=== PATIENT | female | born 1935 | race Caucasian/White ===

== ENCOUNTER 2016-10-21 11:07 | Inpatient (IN) | payer MEDICARE, BC ==
[2016-10-21] VITALS (13 sets, daily range): BP systolic 119–176; BP diastolic 68–91
[~2016-10-21] VITALS: Ht 170.2 cm; Wt 67.2 kg
[~2016-10-21 11:07] MED LIST: AMLODIPINE5 MG PO; BABY ASPIRIN81 MG OR; CALCIUM500 MG/D OR; LIPITOR20 MG OR; SIMVASTATIN20 MG PO; SINGULAIR10 MG PO; TRAMADOL HCL50 MG OR; TYLENOL325 MG OR
--- NOTE | 2016-10-21 11:15 | NUR ---
PT IMMEDIATELY TO ROOM 11. DR SOTO TO BEDSIDE, RESPIRATORY THERPAY CALLED FOR STAT ABG AND NEBULIZER TX. AUDIBLE WHEEZING NOTED. SPO2 85% ON ROOM AIR.
[2016-10-21] MEDS ORDERED: TYLENOL 500MG TAB PO (11:25)
[2016-10-21] MEDS ORDERED: PULMICORT0.25 MG/2 IN (11:26)
[2016-10-21] MEDS ORDERED: PROAIR HFA IN (11:26)
[2016-10-21] MEDS ORDERED: ADLT ASA LOW81 MG PO (11:28)
[2016-10-21] MEDS ORDERED: BAYER BACK PO (11:29)
[2016-10-21] MEDS ORDERED: [UNRECOGNIZED DRUG - OTHER] PO (11:29)
[2016-10-21] MEDS ORDERED: ARICEPT5 MG PO (11:30)
[2016-10-21] MEDS ORDERED: EQL VITAMIN B500 MCG PO (11:30)
[2016-10-21] MEDS ORDERED: MELATONIN5 M3 PO (11:31)
[2016-10-21] MEDS ORDERED: DUONEB IN (11:31)
[2016-10-21] MEDS ORDERED: MULTI VIT PO (11:32)
[2016-10-21 11:55] LABS: HEMATOCRIT 44.3 % (37.0-47.0); HEMOGLOBIN 14.7 g/dl (12.0-16.0); IMMATURE GRANULOCYTES 0.2 % (0.0-1.0); MEAN CORPUSCULAR HGB 29.5 pG CALC (26.0-32.0); MEAN CORPUSCULAR HGB CONC 33.2 g/L CALC (32.0-36.0); NEUT# 7.78 thou/uL (2.00-7.15); RED BLOOD COUNT 4.98 mill/uL (4.20-5.60); RED CELL DISTRI WIDTH 13.1 % (11.5-15.5)
--- NOTE | 2016-10-21 11:57 | NUR ---
PT C/O INCREASED SOB STATING "I CAN'T BREATHE AT ALL". LUNG SOUNDS INCREASED WHEEZING. SAO2=90% ON 3L NC. RR 34 WITH ACCESSORY MUSCLE USE. NOTIFIED.
[2016-10-21 12:01] LABS: ALBUMIN 4.7 g/dL (3.2-5.0); ALKALINE PHOSPHATASE 142 u/l (38-126); ANION GAP 16 (6-22 (CALC)); BUN 7 mg/dL (8-23); BUN/CREATININE RATIO 10 (12-20 (CALC)); CALCIUM 9.8 mg/dL (8.4-10.2); CARBON DIOXIDE 25 mmol/l (22-30); CHLORIDE 102 mmol/l (95-108); CREATININE 0.7 mg/dL (0.5-1.0); GFR > 60 ML/MIN (>=60 (CALC)); GFR FOR AFR.AMER. > 60 ML/MIN (>=60 (CALC)); GLUCOSE 100 mg/dL (82-115); POTASSIUM 4.4 mmol/l (3.5-5.1); SGOT/AST 25 u/l (9-36); SGPT/ALT 16 u/l (11-66); SODIUM 139 mmol/l (137-146); TOTAL PROTEIN 8.3 g/dL (6.3-8.2)
--- NOTE | 2016-10-21 12:07 | NUR ---
SAO2 UP TO 99% ON BIPAP. SKIN WARM AND DRY. PT ALERT. PT TOLERATING BIPAP WELL. AT BEDSIDE. VSS. CALL LIGHT WITHIN REACH.
[2016-10-21 12:13] LABS: MYOGLOBIN 77 ng/mL (0 - 62)
[2016-10-21 12:17] LABS: PROTHROMBIN TIME 11.2 SECONDS (9.0-12.5)
--- NOTE | 2016-10-21 13:13 | NUR ---
PT RESTING COMFORTABLY ON STRETCHER. PT DENIES SOB. SAO2=99% ON BIPAP. RESP EVEN AND UNLABORED. NO ACCESSORY MUSCLE USE. SKIN WARM AND DRY. PT A&O X3. AT BEDSIDE. PT IN STABLE CONDITION. CALL LIGHT WITHIN REACH.
--- NOTE | 2016-10-21 14:10 | NUR ---
SORAIDA D/C'Justice. PT TALKATIVE.
--- NOTE | 2016-10-21 14:14 | NUR ---
SAO2 DOWN TO 92% ON 4L NC. LUNG SOUNDS REMAIN DIMINISHED WITH WHEEZING. PT BEGINS TO C/O "HARD TO BREATHE". PT USING ACCESSORY MUSCLES TO BREATHE. AT BEDSIDE. NEB TX INITIATED BY RT.
--- NOTE | 2016-10-21 14:27 | NUR ---
SBAR PRINTED TO FLOOR
--- NOTE | 2016-10-21 14:30 | NUR ---
PT CONTINUES TO C/O "HARD TO BREATHE". SAO2=92% ON 4L NC. MD AWARE. LUNG SOUNDS UNCHANGED. AT BEDSIDE. CONTINUING TO MONITOR
--- NOTE | 2016-10-21 14:50 | NUR ---
PT PLACED ON BIPAP AGAIN. SAO2 UP TO 98% ON BIPAP. PT CALM. PT AWAITING ADMISSION. PT STATES CAN "BREATHE MUCH BETTER" CALL LIGHT WITHIN REACH.
--- NOTE | 2016-10-21 15:23 | NUR ---
REPORT GIVEN TO LARS PAPPAS
--- NOTE | 2016-10-21 15:30 | NUR ---
Admission Note Report Given to: LARS RN Transported by: Wheelchair X Stretcher Transported with: X Nurse Transporter X Patent IV X O2 X Broadband Installer PT UP TO ICU 8 WITHOUT INCIDENT. PT IN STABLE CONDITION. BOTH IV SITES HEALTHY. ALL BELONGINGS WITH PT INCLUDING DENTURES. WITH PT.
--- NOTE | 2016-10-21 15:45 | NUR ---
PT ARRIVED TO THE UNIT VIA STRETCHER AND ONE PERSON ASSISTANCE FROM THE ER AND RT WITH BIPAP MACHINE. MACHINE SETTINGS PER FLOW SHEET WITH RT. PT IS UNABLE TO TRANSFER INDEPENDANTLY R/T RESPIRATORY STATUS. PT WEIGHED VIA BED SCALE. ASSESSMENT OBTAINED AND HISTORY PERFORMED. PT ORIENTATED TO RIGHTS, RESPONSIBILITIES, ROOM AND CALL LIGHT. PT ASKING ABOUT FOOD AND WATER. INSTRUCTED PT OF NPO STATUS. PT IS NOT EXCITED ABOUT THIS NEW INFORMATION. FURTHER EDUCATION EXPLAINED, THAT AIRWAY IS TOP PRIORITY, AND PERHAPS ONCE LUNGS HAVE TIME TO REST AND RECOVER, SHE CAN USE NC, AND HAVE DIET. WILL CONTINUE TO EDUCATE.
--- NOTE | 2016-10-21 16:05 | NUR ---
MD IN TO SEE PT AT THIS TIME, WILL CONTINUE TO MONITOR.
--- NOTE | 2016-10-21 18:00 | NUR ---
INSTRUCTED PT OF PROPER USE OF BED LUIS, PT STATES "THIS JUST DOESNT FEEL NATURAL." RE-EDUCATED OF BEDREST STATUS. WILL CONTINUE TO MONITOR.
--- NOTE | 2016-10-21 19:20 | NUR ---
awake. no acute resp distress. coarse breath sounds bilat. o2 cont per nc. hob high fowlers position. VERY talkative. cardiac care nurse shows sinus rhythm. #20 lac & rac saline lock. voids per bedside commode. fall precautions cont.
--- NOTE | 2016-10-21 20:30 | NUR ---
pt requested sleeper. dr worley notified. orders rec'd.
--- NOTE | 2016-10-21 20:30 | NUR ---
requested bipap to be resumed. c/o sob although she talks ALOT. rt notified.
--- NOTE | 2016-10-21 21:25 | NUR ---
sonata 5mg po given per request for sleep.
--- NOTE | 2016-10-21 23:00 | NUR ---
awake. naps for short intervals then begins to talk ALOT. up to bedsode commode approx every hour. bipap conts.
[2016-10-22] VITALS (10 sets, daily range): BP systolic 126–171; BP diastolic 71–90
--- NOTE | 2016-10-22 00:05 | NUR ---
has sat on side of bed x2 & removed bipap-replaced x2. has numerous complaints-to tight on face, makes my head hurt, don't want to wear, thirsty. encouraged pt to cont to wear. requested rt to adjust if able.
--- NOTE | 2016-10-22 01:20 | NUR ---
awake. admits "i can't wear this anymore." bipap removed-nasal cannula applied.
--- NOTE | 2016-10-22 02:00 | NUR ---
remains awake. sitting on side of bed. admits "i can't breathe." o2 off-replaced. sao2 93%. up to bsc for bm then to bed. requested neb tx. rt notified.
--- NOTE | 2016-10-22 03:00 | NUR ---
lying quietly in bed. no resp distress. o2 cont per nc.
--- NOTE | 2016-10-22 03:20 | NUR ---
awake. sitting on side of bed. no acute resp distress. o2 cont per nc.
--- NOTE | 2016-10-22 03:50 | NUR ---
laid self down. no distress. monitor shows sinus rhythm.
--- NOTE | 2016-10-22 04:30 | NUR ---
awakened by lab. blood drawn.
[2016-10-22 04:40] LABS: HEMATOCRIT 42.6 % (37.0-47.0); HEMOGLOBIN 13.9 g/dl (12.0-16.0); IMMATURE GRANULOCYTES 0.1 % (0.0-1.0); MEAN CELL VOLUME 88.8 fL CALC (80.0-100.0); MEAN CORPUSCULAR HGB CONC 32.6 g/L CALC (32.0-36.0); NEUT# 6.14 thou/uL (2.00-7.15); RED BLOOD COUNT 4.8 mill/uL (4.20-5.60); RED CELL DISTRI WIDTH 12.9 % (11.5-15.5)
[2016-10-22 05:04] LABS: ANION GAP 21 (6-22 (CALC)); BUN 12 mg/dL (8-23); BUN/CREATININE RATIO 18 (12-20 (CALC)); CALCIUM 10.2 mg/dL (8.4-10.2); CARBON DIOXIDE 19 mmol/l (22-30); CHLORIDE 101 mmol/l (95-108); CREATININE 0.7 mg/dL (0.5-1.0); GFR > 60 ML/MIN (>=60 (CALC)); GFR FOR AFR.AMER. > 60 ML/MIN (>=60 (CALC)); GLUCOSE 123 mg/dL (82-115); POTASSIUM 5.1 mmol/l (3.5-5.1); SODIUM 136 mmol/l (137-146)
--- NOTE | 2016-10-22 05:55 | NUR ---
sitting on side of bed. c/o "i can't breathe." sao2 96%. no resp distress. o2 cont per nc.
--- NOTE | 2016-10-22 07:25 | NUR ---
PT LAYING IN BED WATCHING TV, VERBALIZES NO COMPLAINTS, PT ALERT AND NEEDS REORIENTING FROM TIME TO TIME, HR 88, RESP. 20, BP 140/80, O2 95% ON 4L VIA NC, LUNG SOUNDS COARSE IN ALL KANG, AM ASSESSMENT COMPLETE, SEE INTERVENTIONS, SAFETY MEASURES REINFORCED, CALL MARQUIS WITHIN REACH
--- NOTE | 2016-10-22 09:00 | NUR ---
DR STOLL AT BEDSIDE DISCUSSING PLAN OF CARE
--- NOTE | 2016-10-22 09:31 | NUR ---
VISITOR AT BEDSIDE
--- NOTE | 2016-10-22 10:20 | NUR ---
PT SITTING UP ON THE EDGE OF THE BED NO S/S OF DISTRESS, REMINDED TO CALL FOR ASSISTANCE, CALL MARQUIS WITHIN REACH
--- NOTE | 2016-10-22 11:30 | NUR ---
SETUP ASSISTANCE PROVIDED WITH LUNCH TRAY
--- NOTE | 2016-10-22 12:10 | NUR ---
PT SITTING ON THE EDGE OF THE BED TALKING TO WHO IS AT BEDSIDE, VERBALIZES NO COMPLAINTS, TOLERATED LUNCH WELL, REMINDED TO CALL FOR ASSISTANCE, CALL MARQUIS WITHIN REACH
--- NOTE | 2016-10-22 14:41 | NUR ---
PT SITTING UP IN BED WATCHING TV WITH AT BEDSIDE, PT FORGETFUL NEEDS FREQUENT REDIRECTION, CALL MARQUIS WITHIN REACH
--- NOTE | 2016-10-22 16:35 | NUR ---
PT SITTING ON THE EDGE OF THE BED WANTING TO GO HOME, CALL MARQUIS WITHIN REACH
--- NOTE | 2016-10-22 17:15 | NUR ---
PT ANXIOUS, PULLING EQUIPMENT OFF, PT SHORT OF BREATH DUE TO REMOVING OXYGEN, MD NOTIFIED NEW ORDERS RECEIVED
--- NOTE | 2016-10-22 17:25 | NUR ---
SETUP ASSISTANCE PROVIDED WITH PM MEAL TRAY
--- NOTE | 2016-10-22 19:00 | NUR ---
awake. confused. thinks she is in her home. denies pain. coarse breath sounds & wheezes bilat. o2 cont per nc. hospital monitor shows sinus sinus tach. #20 rac saline lock. po fluids taken well. voids per bedside commode. requires freq observation from staff. fall precautions cont.
--- NOTE | 2016-10-22 19:30 | NUR ---
standing @ bedside naked. "looking for my cat." attempted to reoriented without success. regowned. assisted into bed.
--- NOTE | 2016-10-22 20:00 | NUR ---
standing @ side of bed naked. o2, dramatic director & bp cuff off-replaced. regowned & assisted into bed. unable to reorient.
--- NOTE | 2016-10-22 20:30 | NUR ---
sitting on side of bed. o2 off-replaced. sonata 5mg po given for sleep.
--- NOTE | 2016-10-22 21:55 | NUR ---
oob freq. removes o2 freq. requires much attention from staff. remains confused. xanax 0.25mg po given.
--- NOTE | 2016-10-22 23:00 | NUR ---
eyes closed. no resp distress. monitor shows sinus tach.
[2016-10-23] VITALS (12 sets, daily range): BP systolic 100–160; BP diastolic 62–95
--- NOTE | 2016-10-23 02:00 | NUR ---
resting quietly. resps unlabored. o2 cont per nc. monitor shows sinus tach.
--- NOTE | 2016-10-23 04:00 | NUR ---
cont to sleep. no distress.
[2016-10-23 04:14] LABS: HEMATOCRIT 42.1 % (37.0-47.0); HEMOGLOBIN 13.9 g/dl (12.0-16.0); IMMATURE GRANULOCYTES 0.5 % (0.0-1.0); MEAN CELL VOLUME 89.4 fL CALC (80.0-100.0); MEAN CORPUSCULAR HGB 29.5 pG CALC (26.0-32.0); NEUT# 18.15 thou/uL (2.00-7.15); RED BLOOD COUNT 4.71 mill/uL (4.20-5.60); RED CELL DISTRI WIDTH 13.2 % (11.5-15.5)
--- NOTE | 2016-10-23 04:30 | NUR ---
lab here. blood drawn.
[2016-10-23 04:34] LABS: ANION GAP 19 (6-22 (CALC)); BUN 22 mg/dL (8-23); BUN/CREATININE RATIO 26 (12-20 (CALC)); CALCIUM 10.3 mg/dL (8.4-10.2); CARBON DIOXIDE 23 mmol/l (22-30); CHLORIDE 97 mmol/l (95-108); CREATININE 0.8 mg/dL (0.5-1.0); GFR > 60 ML/MIN (>=60 (CALC)); GFR FOR AFR.AMER. > 60 ML/MIN (>=60 (CALC)); GLUCOSE 123 mg/dL (82-115); SODIUM 133 mmol/l (137-146)
[2016-10-23 04:52] LABS: POTASSIUM 5.6 mmol/l (3.5-5.1)
--- NOTE | 2016-10-23 06:00 | NUR ---
sitting on side of bed. no distress. monitor shows sinus tach.
--- NOTE | 2016-10-23 07:10 | NUR ---
PT SITTING ON THE SIDE OF THE BED, A&O X 3, PT HAS MOMENTS OF CONFUSION, IS EASILY REORIENTED, PERRL, HR 120, RESP. 22, BP 156/78, O2 95% ON 4L VIA NC, PT HAS A NONE PRODUCTIVE COUGH, LUNG SOUNDS COARSE WITH WHEEZES, 20G RAC IV SALINE LOCKED, AM ASSESSMENT COMPLETE, SEE INTERVENTIONS, SAFETY MEASURES REINFORCED, CALL MARQUIS WITHIN REACH
--- NOTE | 2016-10-23 07:35 | NUR ---
SETUP ASSISTANCE PROVIDED WITH AM MEAL TRASoila
--- NOTE | 2016-10-23 08:10 | NUR ---
PT SITTING ON THE EDGE OF THE BED, TOLERATING WELL, CALL MARQUIS WITHIN REACH
--- NOTE | 2016-10-23 10:15 | NUR ---
DR STOLL AT BEDSIDE DISCUSSING PLAN OF CARE
--- NOTE | 2016-10-23 11:30 | NUR ---
SETUP ASSISTANCE PROVIDED WITH LUNCH TRAY
--- NOTE | 2016-10-23 11:35 | NUR ---
PT AGITATED PULLING AT MONITORING EQUIPMENT AND DISCONNECTING EQUIPMENT AND REMOVING O2, MD NOTIFIED ORDERS GIVEN
--- NOTE | 2016-10-23 12:05 | NUR ---
PT TOLERATED LUNCH TRAY WELL, SITTING ON THE SIDE OF THE BED, NO S/S OF DISTRESS
--- NOTE | 2016-10-23 13:10 | NUR ---
FAMILY AT BEDSIDE
--- NOTE | 2016-10-23 14:35 | NUR ---
PT SITTING ON THE SIDE OF THE VERBALIZES NO COMPLAINTS, REMINDED TO CALL FOR ASSISTANCE, CALL MARQUIS WITHIN REACH
--- NOTE | 2016-10-23 15:30 | NUR ---
PT ARRIVED TO FLOOR VIA WC THIS TIME ACCOMPANIED BY PATRICIA ESTRADA; PT ORIENTED TO ROOM AND CALL LIGHT SYSTEM; ASSESSMENT COMPLETED IN AGREEMENT WITH ASSESSMENT DOCUMENTED; VSS; BED ALARM IN PLACE FOR PT SAFETY; PT C/O "TICKLE" IN HER THROAT; DR STOLL NOTIFIED AND NEW ORDERS RECIEVED; PT INSTRUCTED TO CALL FOR ANY ASSISTANCE NEEDED; CALL LIGHT WITHIN REACH; WILL CONTINUE TO MONITOR
--- NOTE | 2016-10-23 19:28 | NUR ---
BEDSIDE REPORT RECEIVED FROM ELYSE FENG. PT RESTING IN BED WITH EYES CLOSED. NO SIGNS OF PAIN/DISCOMFORT NOTED. RESPIRATIONS EVEN AND UNLABORED WITH OXYGEN IN PLACE. BED ALARM AND OTHER SAFETY MEASURES IN PLACE. CALL LIGHT WITHIHN REACH.
--- NOTE | 2016-10-23 22:34 | NUR ---
PT'S BED ALARM SOUNDED AND PATIENT OBSERVED TO HAVE TAKEN OF HER DIE KEEPER AND SITTING ON THE EDGE OF THE BED STATING THAT SHE WANTS TO GO HOME. PT IS ORIENTED TO NAME ONLY AT THIS TIME. DEMANDS THAT HER COME PICK HER UP. ARRIVED TO UNIT TO DISCUSS PLAN OF CARE. NATE AGREES THAT PT IS UNSAFE AT THIS TIME TO BE TAKEN HOME. PT CURRENTLY IN ROOM AMBULATING AND SITTING IN CHAIR WITH BAGS PACKED UP. ALL MEDICATIONS GIVEN INCLUDING PRN XANAX AND SONATA. PT CALLED AGAIN ASKING HIM WHY HE ISNT HERE YET. ATTEMPTED TO REDIRECT PT AND ORIENT HER WITH NO EFFECT. WILL CONTINUE TO MONITOR CLOSELY. ALL SAFETY MEASURES IN PLACE. CALL LIGHT WITHIN REACH.
--- NOTE | 2016-10-24 00:46 | NUR ---
PT RESTING IN BED WITH EYES CLOSED. ALLOWED STAFF TO REAPPLY HAULAGE ENGINE OPERATOR AND NIGHT GOWN. AGREED THAT SHE WOULD STAY THE NIGHT HERE. CONTINUES TO HAVE QUESTIONS REGARDING . C/O HEADACHE AND ANALGESIC GIVEN WITH GOOD EFFECT. ALL SAFETY MEASURES IN PLACE. CONTINUEING TO MONITOR FREQUENTLY. CALL LIGHT SYSTEM REVIEWED AND IN REACH.
--- NOTE | 2016-10-24 04:28 | NUR ---
PT ASLEEP AT THIS TIME. NO SIGNS OF PAIN OR DISCOMFORT. RESPIRATIONS EVEN AND UNLABORED. SAFETY MEASURES IN PLACE. CALL LIGHT WITHIN REACH.
[2016-10-24 04:53] VITALS: BP 149/87
[2016-10-24 05:11] LABS: HEMATOCRIT 41.2 % (37.0-47.0); IMMATURE GRANULOCYTES 0.5 % (0.0-1.0); MEAN CELL VOLUME 87.5 fL CALC (80.0-100.0); MEAN CORPUSCULAR HGB 29.7 pG CALC (26.0-32.0); NEUT# 17.91 thou/uL (2.00-7.15); RED BLOOD COUNT 4.71 mill/uL (4.20-5.60); RED CELL DISTRI WIDTH 13.2 % (11.5-15.5)
[2016-10-24 05:17] LABS: ANION GAP 14 (6-22 (CALC)); BUN 20 mg/dL (8-23); BUN/CREATININE RATIO 30 (12-20 (CALC)); CALCIUM 10.1 mg/dL (8.4-10.2); CARBON DIOXIDE 27 mmol/l (22-30); CHLORIDE 100 mmol/l (95-108); CREATININE 0.7 mg/dL (0.5-1.0); GFR > 60 ML/MIN (>=60 (CALC)); GFR FOR AFR.AMER. > 60 ML/MIN (>=60 (CALC)); GLUCOSE 150 mg/dL (82-115); POTASSIUM 4.3 mmol/l (3.5-5.1); SODIUM 137 mmol/l (137-146)
--- NOTE | 2016-10-24 07:00 | NUR ---
SHIFT CHANGE REPORT, PT SLEEPING SOUNDLY AT THIS TIME, HS NURSE REPORTED PT HAD RESTLESS NIGHT. BREATHING EVEN AND NON-LABORED, NO VISIBLE SIGN DISTRESS, CALL MARQUIS IN REACH.
[2016-10-24 09:50] VITALS: BP 128/74
--- NOTE | 2016-10-24 10:14 | NUR ---
JUST AWAKENED, ORIENTED, STATES SHE IS A LATE SLEEPER AND DOES NOT EAT BREAKFAST AND ISNT HUNGRY AT THIS TIME BUT WILL HAVE LUNCH, STATES SHE WANTS TO REST NOW SHE IS TIRED AND NOT A MORNING PERSON. REORIENTED TO TIME AND PLACE, BODY ALARM IN PLACE, CALL MARQUIS IN REACH.
[2016-10-24 11:48] VITALS: BP 130/80
[2016-10-24 15:58] VITALS: BP 132/80
--- NOTE | 2016-10-24 16:00 | NUR ---
SITTING UP IN BED, FAMILY MEMBERS IN ROOM, CALL MARQUIS IN REACH.
--- NOTE | 2016-10-24 20:13 | NUR ---
BEDSIDE REPORT RECEIVED FROM ELYSE ABDI. PT SITTING UP IN BED WATCHING TV AT THIS TIME. ALERT AND ORIENTED TO PERSON AND PLACE CURRENTLY. DENIES PAIN. RESPIRATIONS EVEN AND UNLABORED WITH OXYGEN IN PLACE. PLAN OF CARE DISCUSSED. PT NEEDS REINFORCEMENT. ENCOURAGED TO VERBALIZE CONCERNS. SAFETY MEASURES IN PLACE INCLUDING BED ALARM. CALL LIGHT SYSTEM REVIEWED AND IN REACH.
[2016-10-24 21:34] VITALS: BP 135/81
--- NOTE | 2016-10-25 | NUR ---
PT RESTING IN BED WITH EYES OPEN. STATES THAT SHE IS HAVING A HARD TIME SLEEPING. SLEEPING MEDICATION GIVEN WITH SOMEWHAT EFFECT. COUGH MEDICATION GIVEN FOR COUGH WITH GOOD EFFECT. NO SIGNS OF PAIN OR DISCOMFORT NOTED. RESPIRATIONS EVEN AND UNLABORED. SAFETY MEASURES IN PLACE. CALL LIGHT WITHIN REACH.
[2016-10-25 01:30] VITALS: BP 128/75
--- NOTE | 2016-10-25 04:21 | NUR ---
PT UP IN SEMI FOWLERS POSITION AT THIS TIME RECEIVING A BREATHING TREATMENT BY RT. DENIES PAIN AT THIS TIME. RESPIRATIONS ARE EVEN AND UNLABORED. IV SITE APPEARS HEALTHY AND IS PATENT WHEN FLUSHED. PT HAS NO REQUESTS AT THIS TIME. SAFETY PRECAUTIONS REMAIN IN PLACE INCLUDING BED ALARM. CALL LIGHT WITHIN REACH.
[2016-10-25 04:30] VITALS: BP 145/79
[2016-10-25 04:59] LABS: HEMATOCRIT 38.6 % (37.0-47.0); HEMOGLOBIN 13.1 g/dl (12.0-16.0); IMMATURE GRANULOCYTES 0.3 % (0.0-1.0); MEAN CELL VOLUME 86.2 fL CALC (80.0-100.0); MEAN CORPUSCULAR HGB 29.2 pG CALC (26.0-32.0); MEAN CORPUSCULAR HGB CONC 33.9 g/L CALC (32.0-36.0); NEUT# 12.46 thou/uL (2.00-7.15); RED BLOOD COUNT 4.48 mill/uL (4.20-5.60); RED CELL DISTRI WIDTH 13.1 % (11.5-15.5)
[2016-10-25 05:24] LABS: ANION GAP 13 (6-22 (CALC)); BUN 15 mg/dL (8-23); BUN/CREATININE RATIO 25 (12-20 (CALC)); CALCIUM 9.5 mg/dL (8.4-10.2); CARBON DIOXIDE 28 mmol/l (22-30); CHLORIDE 101 mmol/l (95-108); CREATININE 0.6 mg/dL (0.5-1.0); GFR > 60 ML/MIN (>=60 (CALC)); GFR FOR AFR.AMER. > 60 ML/MIN (>=60 (CALC)); GLUCOSE 140 mg/dL (82-115); SODIUM 138 mmol/l (137-146)
--- NOTE | 2016-10-25 07:10 | NUR ---
BEDSIDE REPORT RECIEVED FROM PATRICIA WHALEN; PT RESTING IN BED; NO S/S OF DISTRESS NOTED; PT CONFUSED TO TIME AND PLACE; STATES "I'M READY TO GET OUT OF HERE AND GO TO MY ROOM THIS ISN'T MY ROOM. I JUST GOT HERE LAST NIGHT, I ONLY CAME FOR SOME TESTS AND NOW I'M READY TO GO HOME"; ATTEMPTED TO REORIENT PT UNSUCCESSFULLY; BED ALARM IN PLACE FOR PT SAFETY; TELE IN PLACE; CALL LIGHT WITHIN REACH; WILL CONTINUE TO MONITOR
[2016-10-25 08:56] VITALS: BP 141/64
[2016-10-25] MEDS ORDERED: STERAPRED DS10 MG PO (10:20)
[2016-10-25] MEDS ORDERED: ZITHROMAX250 MG PO (10:21)
[2016-10-25 10:39] VITALS: BP 136/83
--- NOTE | 2016-10-25 12:10 | NUR ---
PT SITTING UP CHAIR AT BEDSIDE; NO S/S OF DISTRESS NOTED; SPOUSE AT BEDSIDE; PT VERY ANXIOUS TO GET HOME AT THIS TIME; PT INFORMED DISCHARGE WAS PENDING O2 SET UP; PT AND SPOUSE VERBALIZE UNDERSTANDING; CALL LIGHT WITHIN REACH; WILL CONTINUE TO MONITOR
--- NOTE | 2016-10-25 13:26 | NUR ---
PT BECOMING VERY ANXIOUS ABOUT DISCHARGE; SPOUSE AT BEDSIDE; PT MEDICATED WITH XANAX AND UPDATED ON DISCHARGE STATUS; CALL LIGHT WITHIN REACH; WILL CONTINUE TO MONITOR
--- NOTE | 2016-10-25 16:00 | NUR ---
PT VERY ANXIOUS FOR DISCHARGE AND REFUSING TO WAIT FOR O2 DELIVERY; CM AND NURSING STAFF AT BEDSIDE TO EXPLAIN IMPORTANCE OF O2;PT RESTING SATURATION 89% ON RA; SPOUSE AT BEDSIDE; RYANNE, NURSING SUPERVISION ALSO AT BEDSIDE TO DISCUSS POC; SPOUSE WOULD LIKE TO TAKE PT HOME TO MONITOR HER AND UNDERSTANDS PT WOULD BE LEAVING AMA; RAUSCH NOTIFIED; AMA PAPERS SIGNED; PRESCRIPTIONS GIVEN TO SPOUSE; PT WAS ASSISTED TO CAR VIA WC; PT IN STABLE CONDITION AT THIS TIME
--- NOTE | 2016-10-26 13:34 | NUR ---
PHARMACY MEDICATION FOLLOW-UP Patient was seen in ED on 10/21/16 Cultures were reviewed from: Blood Patient was discharged with Rx for:AZITHROMYCIN C&S report came back with No Growth PLAN: Recommended: No Change Comment:
== END 2016-10-25 16:30 | disposition left against medical advice (07) | DRG 189 ==
LOC: ENPENDDIS → ED 11:07 → ED-I 14:00 → ED 14:57 → MS2 14:58 → ICU 14:58 → MS2 10-23 15:30
PROVIDERS: Emergency Medicine; ADMIT Internal Medicine; ATTEND Internal Medicine
DX: J96.01 Acute respiratory failure with hypoxia (principal); F05 Delirium due to known physiological condition; E87.5 Hyperkalemia; F03.90 Unspecified dementia, unspecified severity, without behavioral disturbance, psychotic disturbance, mood disturbance, and anxiety; J45.901 Unspecified asthma with (acute) exacerbation; I10 Essential (primary) hypertension; G89.29 Other chronic pain; M54.9 Dorsalgia, unspecified
CPT/HCPCS: J3475; J7626; S0164

== ENCOUNTER 2017-09-27 11:35 | Inpatient (IN) | payer MEDICARE, BC ==
[~2017-09-27] VITALS: Ht 170.2 cm; Wt 65.3 kg
[~2017-09-27 11:35] MED LIST changes: +ADLT ASA LOW81 MG PO; +ARICEPT5 MG PO; +BAYER BACK PO; +DUONEB IN; +EQL VITAMIN B500 MCG PO; +MELATONIN5 M3 PO; +MULTI VIT PO; +PROAIR HFA IN; +PULMICORT0.25 MG/2 IN; +STERAPRED DS10 MG PO; +TYLENOL 500MG TAB PO; +ZITHROMAX250 MG PO; +[UNRECOGNIZED DRUG - OTHER] PO
--- NOTE | 2017-09-27 11:43 | NUR ---
PT TO ER ROOM 15 BY EMS FROM HOME. EXPLAINED TO PT MULTIPLE TIMES SHE CANT HAVE A BLANKET BC SHE HAS A FEVER. PT STATES SHE WILL SCREAM IF SHE DOESNT GET A BLANKET. REMINDED PT SHE HAS A FEVER SO SHE WILL NOT BE GETTING A BLANKET.
--- NOTE | 2017-09-27 13:03 | NUR ---
STRAIGHT CATH COMPLETED FOR UA COMPLETION. PT STATED HER MOUTH WAS TOO DRY TO GIVE A URINE SAMPLE. SENT TO LAB. PT STATES " LEFT ROOM BC HE IS A FAINTER"
--- NOTE | 2017-09-27 13:13 | NUR ---
PT STATES SHE DOESNT WANT HER PANTS PUT BACK ON OR SHIRT REMOVED. PT REFUSED GOWN.
[2017-09-27 13:15] LABS: ALBUMIN 3.8 g/dL (3.2-5.0); ALKALINE PHOSPHATASE 123 u/l (38-126); ANION GAP 15 (6-22 (CALC)); BILIRUBIN, TOTAL 2.2 mg/dL (0.0-1.4); BUN 9 mg/dL (8-23); BUN/CREATININE RATIO 12 (12-20 (CALC)); CARBON DIOXIDE 23 mmol/l (22-30); CHLORIDE 106 mmol/l (95-108); CREATININE 0.7 mg/dL (0.5-1.0); GFR > 60 ML/MIN (>=60 (CALC)); GFR FOR AFR.AMER. > 60 ML/MIN (>=60 (CALC)); LIPASE 29 u/l (23-300); POTASSIUM 3.8 mmol/l (3.5-5.1); SGOT/AST 18 u/l (9-36); SGPT/ALT 13 u/l (11-66); SODIUM 141 mmol/l (137-146); TOTAL PROTEIN 6.9 g/dL (6.3-8.2)
[2017-09-27 13:20] LABS: HEMATOCRIT 38.8 % (37.0-47.0); HEMOGLOBIN 12.9 g/dl (12.0-16.0); IMMATURE GRANULOCYTES 0.3 % (0.0-1.0); MEAN CORPUSCULAR HGB 30.6 pG CALC (26.0-32.0); MEAN CORPUSCULAR HGB CONC 33.2 g/L CALC (32.0-36.0); NEUT# 13.59 thou/uL (2.00-7.15); RED BLOOD COUNT 4.21 mill/uL (4.20-5.60)
[2017-09-27 13:23] LABS: MEAN CELL VOLUME 92.2 fL CALC (80.0-100.0)
[2017-09-27 13:38] LABS: URINE BILIRUBIN - DIPSTICK NEGATIVE (NEGATIVE); URINE BLOOD DIPSTICK TRACE-INTACT (NEGATIVE); URINE COLOR YELLOW; URINE GLUCOSE - DIPSTICK NEGATIVE (NEGATIVE); URINE KETONE NEGATIVE (NEGATIVE); URINE LEUK ESTERASE NEGATIVE (NEGATIVE); URINE NITRITE - DIPSTICK NEGATIVE (Negative); URINE PH 8.5 (4.5-8.0); URINE PROTEIN - DIPSTICK NEGATIVE (NEG-TRACE); URINE SPECIFIC GRAVITY 1.015; URINE UROBILINOGEN - DIPSTICK 0.2 E.U./dL (0.2)
--- NOTE | 2017-09-27 14:03 | NUR ---
PT SLEEPING. NO IN ROOM. UNABLE TO COMPLETE MED REC. WILL CONTINUE TO MONITOR UNTIL DISPO
--- NOTE | 2017-09-27 14:43 | NUR ---
SBAR PRINTED TO FLOOR
--- NOTE | 2017-09-27 14:56 | NUR ---
RECVING ELYSE [place].
[2017-09-27 15:26] LABS: INFLUENZA A NONE DETECTED (NONE DETECT); INFLUENZA B NONE DETECTED (NONE DETECT)
--- NOTE | 2017-09-27 15:37 | NUR ---
IVF & ABX STARTED. EKG COMPLETED. TELE ON PT.
--- NOTE | 2017-09-27 15:44 | NUR ---
Admission Note Report Given to: TRINIDAD Transported by: Wheelchair X Stretcher Transported with: X Nurse Transporter X Patent IV O2 X Manager Background ALMOST DONE CLEANING ROOM
[2017-09-27 15:49] LABS: URINE CLARITY CLEAR
--- NOTE | 2017-09-27 15:51 | NUR ---
SEPTIC WORKSHEET COMPLETED AND SENT TO [facility] FOR CONTINUATION OF CARE
[2017-09-27 16:10] VITALS: BP 111/57
--- NOTE | 2017-09-27 16:14 | NUR ---
PT TO [facility] 281 IN STABLE CONDITION. RN @ BEDSIDE.
--- NOTE | 2017-09-27 17:23 | NUR ---
REPORT RECEIVED FROM ROCÍO IN ED, PT ARRIVED ON UNIT @ 1600 VIA STRETCHER AND TRANSFERRED TO BED. TELE MONITOR IN PLACE, [facility], FLUIDS PLACED IV PUMP. PT C/O IN LEFT HIP THEN WHEN ASKED TO RATE PAIN SHE STATED SHE HAS NO PAIN NOW HER DOCTOR TOLD HER IT WILL FADE AWAY. BED ALARM PLACED AND CALL MARQUIS IN REACH.
--- NOTE | 2017-09-27 19:00 | NUR ---
SPOUSE VISITING AT THIS TIME, ASKED TO BRING IN PATIENTS MEDS, STATES HE WILL DO THAT NATALIYA.
[2017-09-27 19:15] VITALS: BP 105/52
[2017-09-27 19:40] VITALS: BP 93/56
--- NOTE | 2017-09-27 20:00 | NUR ---
PATIENT SITTING UP ON THE SIDE OF THE BED-ORIENTED TO SELF ONLY. BED ALARM IS GOING OFF. PATIENT ASSISTED TO VOID AND THEN BACK TO THE BED. ATTEMPTED TO ORIENT PATIENT TO PLACE AND TIME WITH LITTLE SUCCESS. PATIENT IS PLEASANTLY CONFUSED. PATIENT WITH IV SITE TO RIGHT AC WITH IVF D5NS PATENT AND INFUSING AT 80CC/HR. SITE APPEARS HEALTHY AT THIS TIME. TELE MONITORING DEVICE IN PLACE. ATTEMPT TO EDUCATE ON SAFETY PRECAUTIONS-BED ALARM INP LACE FOR PATIENT SAFETY. CALL LIGHT IN REACH. WILL CONT TO MONITOR.
--- NOTE | 2017-09-27 23:00 | NUR ---
PATIENT IS CONSTANTLY SETTING THE BED ALARM OFF AND TRYING TO GET OUT OF BED. ATTEMPT TO REORIENT PATIENT WITH LITTLE SUCCESS. PATIENT CONT TO BE PLEASANTLY CONFUSED. STAFF AT BEDSIDE AT THIS TIME FOR PATIENT SAFETY. WILL CONT TO MONITOR.
--- NOTE | 2017-09-27 23:23 | NUR ---
PT REQUESTS SLEEPING MEDICATION;NEW ORDER RECEIVED FROM
--- NOTE | 2017-09-27 23:56 | NUR ---
PT MEDICATED WITH PRN RESTORIL 15MG PO FOR SLEEP PER REQUEST;FALL PRECAUTIONS IN PLACE FOR PT SAFETY;WILL CONTINUE TO MONITOR
[2017-09-28] VITALS (7 sets, daily range): BP systolic 91–140; BP diastolic 40–72
--- NOTE | 2017-09-28 04:58 | NUR ---
PATIENT APPEARS SLEEPING POSITIONED ON HER SIDE IN BED. IVF PATENT AND INFUSING AT 80CC/HR VIA RIGHT AC SITE. BED ALARM IN PLACE FOR PATIENT SAFETY. CALL LIGHT IN REACH. WILL CONT TO MONITOR.
--- NOTE | 2017-09-28 07:30 | NUR ---
REPORT RECEIVED FROM ELYSE BURROWS. PT SLEEPING AT THIS TIME. CALL LIGHT WITHIN REACH.
--- NOTE | 2017-09-28 08:15 | NUR ---
PT SUPINE IN BED. AWAKENED FOR VS. PT STATES "IM NOT A MORNING PERSON." PLAN OF CARE DISCUSSED. FALL PRECAUTIONS REINFORCED. BED ALARM SET FOR SAFETY. CALL LIGHT REVIEWED AND IN REACH. PT STATES UNDERSTANDING.
[2017-09-28 10:22] LABS: HEMATOCRIT 37.8 % (37.0-47.0); HEMOGLOBIN 12.1 g/dl (12.0-16.0); IMMATURE GRANULOCYTES 0.3 % (0.0-1.0); MEAN CELL VOLUME 97.4 fL CALC (80.0-100.0); MEAN CORPUSCULAR HGB 31.2 pG CALC (26.0-32.0); NEUT# 6.81 thou/uL (2.00-7.15); RED BLOOD COUNT 3.88 mill/uL (4.20-5.60); RED CELL DISTRI WIDTH 14.4 % (11.5-15.5)
[2017-09-28] MEDS ORDERED: PROAIR HFA108 MCG/AC PO (10:37)
[2017-09-28] MEDS ORDERED: TYLENOL 500MG TAB PO (10:37)
[2017-09-28] MEDS ORDERED: AMLODIPINE5 MG PO (10:38)
[2017-09-28] MEDS ORDERED: ASPIRIN 81 LOW81 MG PO (10:38)
[2017-09-28] MEDS ORDERED: BAYER BACK PO (10:39)
[2017-09-28] MEDS ORDERED: [UNRECOGNIZED DRUG - OTHER] PO (10:39)
[2017-09-28] MEDS ORDERED: BUDESONID1 IN (10:40)
[2017-09-28] MEDS ORDERED: EQL VITAMIN B500 MCG PO (10:41)
[2017-09-28] MEDS ORDERED: DONEPEZIL5 MG PO (10:42)
[2017-09-28] MEDS ORDERED: DUONEB IN (10:42)
[2017-09-28] MEDS ORDERED: DIPHENHYDRAM25 M2 PO (10:43)
[2017-09-28] MEDS ORDERED: SINGULAIR10 MG PO (10:43)
[2017-09-28] MEDS ORDERED: ZOCOR20 M1 PO (10:44)
[2017-09-28] MEDS ORDERED: MULTIVITAMI9 PO (10:44)
[2017-09-28 10:48] LABS: ANION GAP 12 (6-22 (CALC)); BUN 12 mg/dL (8-23); BUN/CREATININE RATIO 14 (12-20 (CALC)); CARBON DIOXIDE 24 mmol/l (22-30); CHLORIDE 108 mmol/l (95-108); CREATININE 0.8 mg/dL (0.5-1.0); GFR > 60 ML/MIN (>=60 (CALC)); GFR FOR AFR.AMER. > 60 ML/MIN (>=60 (CALC)); MAGNESIUM 1.9 mg/dL (1.6-2.3); POTASSIUM 3.5 mmol/l (3.5-5.1); SODIUM 140 mmol/l (137-146)
--- NOTE | 2017-09-28 12:30 | NUR ---
PT'S AT BEDSIDE. PT DENIES PAIN. NO COMPLAINTS AT THIS TIME.
--- NOTE | 2017-09-28 17:00 | NUR ---
PT REQUESTING "SLEEPING PILL" FOR TONIGHT. PT INFORMED OF RESTORIL ORDER AND INSTRUCTED ON PROTOCOL FOR PRN MEDICATIONS. PT STATES UNDERSTANDING.
--- NOTE | 2017-09-28 19:30 | NUR ---
CHANGE OF SHIFT REPORT RECEIVED FROM ELYSE LARA. PATIENT LYING IN BED ALERT BUT PLEASANTLY CONFUSED. PT STATED THERE IS PAIN IN MY LEFT ARM I CAN HARDLY LIFT IT. PAIN MEDICATION BROUGHT TO PATIENT. PATIENT STAED "THE PAIN IS GONE, IT MUST HAVE BEEN THE PAIN IN MY HIP MOVED UP MY ARM"
[2017-09-29] VITALS (7 sets, daily range): BP systolic 103–137; BP diastolic 52–84
--- NOTE | 2017-09-29 00:04 | NUR ---
PATIENT CONTINUES TO BE PLEASANTLY CONFUSED. REORIENTED PATIENT. ATTEMPTING TO GET OOB. BED ALARM ACTIVATED.
--- NOTE | 2017-09-29 04:00 | NUR ---
PATIENT AWAKE AND LYING IN BED. NO APPARENT ACUTE CHANGES NOTED IN PT'S CONDITION.
[2017-09-29 06:39] LABS: HEMATOCRIT 33.7 % (37.0-47.0); HEMOGLOBIN 11.2 g/dl (12.0-16.0); IMMATURE GRANULOCYTES 0.3 % (0.0-1.0); MEAN CELL VOLUME 93.1 fL CALC (80.0-100.0); MEAN CORPUSCULAR HGB 30.9 pG CALC (26.0-32.0); MEAN CORPUSCULAR HGB CONC 33.2 g/L CALC (32.0-36.0); NEUT# 10.57 thou/uL (2.00-7.15); RED BLOOD COUNT 3.62 mill/uL (4.20-5.60); RED CELL DISTRI WIDTH 13.5 % (11.5-15.5)
[2017-09-29 06:52] LABS: ANION GAP 13 (6-22 (CALC)); BUN 8 mg/dL (8-23); BUN/CREATININE RATIO 13 (12-20 (CALC)); CARBON DIOXIDE 23 mmol/l (22-30); CHLORIDE 108 mmol/l (95-108); CREATININE 0.7 mg/dL (0.5-1.0); GFR > 60 ML/MIN (>=60 (CALC)); GFR FOR AFR.AMER. > 60 ML/MIN (>=60 (CALC)); MAGNESIUM 1.8 mg/dL (1.6-2.3); POTASSIUM 3.6 mmol/l (3.5-5.1); SODIUM 140 mmol/l (137-146)
--- NOTE | 2017-09-29 07:35 | NUR ---
PT PLEASANTLY CONFUSED, TALKS NON STOP AND AT TIMES IS AWARE OF PLACE AND PERSON, BUT THEN TALKS ABOUT SENDING SCRIPTS TO HER PHARMACY IN [place], AM ASSESSMENT COMPLETED, SEE INTERVENTIONS, OOB TO BSC, WITH ASSIST AND SLIGHTLY UNSTEADY GAIT CONTINENT OF 300 ML CLEAR YELLOW URINE, SELF PHILLY CARE PROVIDED, BACK TOBED WITH SAME ASSIST AND REPOSITIONED FOR COMFORT, CALL MARQUIS WITHIN REACH, SAFETY MEASURES REINFORCED, WILL CONTINUE TO MONITOR.
--- NOTE | 2017-09-29 09:56 | NUR ---
PT RESTING, PT CONSULTED EARLIER AND PT WAS INCONTINENT OF STOOL DURING AMBULATION, ADL CARE AND PT BATHED WITH CUT AND PRINT MACHINE OPERATOR ASSIST, CURRENTLY RESTING IN ROOM, CALL MARQUIS WITHIN REACH. WILL CONTINUE TO MONITOR
--- NOTE | 2017-09-29 12:16 | NUR ---
P.T. TO SEE PATIENT, REMAIN SITTING UP IN RECLINER, HARDING CATH INTACT, CALL MARQUIS WITHIN REACH SET UP ASSIST PROVIDED FOR AFTERNOON MEAL
--- NOTE | 2017-09-29 13:49 | NUR ---
ANCIENT ART CURATOR INTO SEE PT AND DISCUSS DIET, PT REMAINS CONFUSED AND TALKATIVE, CALL MARQUIS WITHIN REACH
--- NOTE | 2017-09-29 14:00 | NUR ---
VISITORS AT BEDSIDE ALONG WITH SPOUSE, PT REMAINS CONFUSED BUT EXTREMELY TALKATIVE, CALL MARQUIS WITHIN REACH
--- NOTE | 2017-09-29 14:38 | NUR ---
O.T. AT BEDSIDE FOR EVAL AND TREATMENT
--- NOTE | 2017-09-29 15:30 | NUR ---
pt more confused and agitated, pulling at monitoring equipment, and attempting to remove IV access, despite mutiple redirects and husbnad being at bedside, pt medicated as ordered, will monitor tolerance, spouse remains at bedside, instructed spouse to let us know when he leaves to allow for increased observation of pt related to mental status and possible sitter if required, will continue to monitor closely
--- NOTE | 2017-09-29 15:58 | NUR ---
other visitors at bedside, (spouse remains at bedside as well), pt remains confused, stating lets go home, redirection provided with porr success, will continue to monitor
--- NOTE | 2017-09-29 16:25 | NUR ---
pt back to bed for complaints of tired, gone home with visitors a this time, pt drowsy and repostioned for comfort, call aguilar within reach.
--- NOTE | 2017-09-29 19:16 | NUR ---
PT RESTING IN BED WITH EYES CLOSED, RESP EVEN AND UNLABORED. NO SIGNS OF DISTRESS NOTED, IV FLUIDS INFUSING WITHOUT DIFFICULTIES. BED ALARM X1, CALL LIGHT IN REACH,CONTINUE TO MONITOR.
--- NOTE | 2017-09-29 21:00 | NUR ---
ENTERED ROOM WITH STONE LATHE OPERATOR TO CHANGE PT. PT HAD BEEN SLEEPING AND WAS INCONTINENT OF BOWEL AND BLADDER. NOTED PT TO HAVE HIVES TO BLE, ABD, BACK AND R SIDE OF NECK. PT C/O ITCHYNESS. ASSESSMENT COMPLETED. PT HAD A NORMAL BM, PERICARE PROVIDED. CALL LIGHT IN REACH,BED ALARM X1, CONTINUE TO MONITOR.
--- NOTE | 2017-09-29 22:08 | NUR ---
IV BENADRYL, PEPCID, AND SOLUMEDROL GIVEN FOR HIVES. NO SIGNS OF DISTRESS NOTED. RESP EVEN AND UNLABORED. PT'S ONLY COMPLAINT AT THIS TIME IS ITCHING. CALL LIGHT IN REACH, BED ALARM X1, CONTINUE TO MONITOR.
--- NOTE | 2017-09-30 00:06 | NUR ---
VSS, ZOSYN STARTED. NO SIGNS OF DISTRESS NOTED, RESP EVEN AND UNLABORED. CONTINUE TO MONITOR.
[2017-09-30 05:20] VITALS: BP 124/74
--- NOTE | 2017-09-30 05:21 | NUR ---
PT RESTING IN BED, RT AT BEDSIDE FOR NEB TX, VSS. PT VOICES NO COMPLAINTS OR NEEDS AT THIS TIME. CALL LIGHT IN REACH, BED ALARM X1, CONTINUE TO MONITOR.
[2017-09-30 06:26] LABS: HEMATOCRIT 35.3 % (37.0-47.0); HEMOGLOBIN 11.8 g/dl (12.0-16.0); MEAN CELL VOLUME 91.9 fL CALC (80.0-100.0); MEAN CORPUSCULAR HGB 30.7 pG CALC (26.0-32.0); MEAN CORPUSCULAR HGB CONC 33.4 g/L CALC (32.0-36.0); RED BLOOD COUNT 3.84 mill/uL (4.20-5.60); RED CELL DISTRI WIDTH 13.8 % (11.5-15.5)
[2017-09-30 06:39] LABS: ANION GAP 14 (6-22 (CALC)); BUN 7 mg/dL (8-23); BUN/CREATININE RATIO 11 (12-20 (CALC)); CARBON DIOXIDE 20 mmol/l (22-30); CHLORIDE 111 mmol/l (95-108); CREATININE 0.6 mg/dL (0.5-1.0); GFR > 60 ML/MIN (>=60 (CALC)); GFR FOR AFR.AMER. > 60 ML/MIN (>=60 (CALC)); POTASSIUM 3.7 mmol/l (3.5-5.1); SODIUM 140 mmol/l (137-146)
--- NOTE | 2017-09-30 07:00 | NUR ---
RECEIVED BEDSIDE REPORT FROM DELFINA GOMEZ. RESTING IN BED WITH EYES CLOSED, AWAKENS WITH VERBAL STIMULI. RESPS EVEN AND UNLABORED ON O2 VIA NC, TELE MONITOR IN PLACE. #22 LW INFUSING WITHOUT DIFFICULTY, SITE APPEARS HEALTHY. VOICES NO NEEDS AT THIS TIME. PLAN OF CARE DISCUSSED. SAFETY PRECAUTIONS REINFORCED. BED ALARM ON FOR SAFETY. BED IN LOWEST POSITION WITH WHEELS LOCKED. CALL LIGHT WITHIN REACH. WILL CONTINUE TO MONITOR.
[2017-09-30 08:07] VITALS: BP 126/60
[2017-09-30] MEDS ORDERED: DONEPEZIL10 MG PO (10:52)
[2017-09-30 11:00] VITALS: BP 124/57
--- NOTE | 2017-09-30 12:15 | NUR ---
IN HIGH FOIWLERS EATING LUNCH, AT BEDSIDE ASSISTING WITH MEAL. RESPS EVEN AND UNLABORED ON O2 VIA NC, TELE MONITOR IN PLACE. #22 LW INFUSING WITHOUT DIFFICULTY, SITE APPEARS HEALTHY. DENIES PAIN OR DISCOMFORT. CALL LIGHT WITHIN REACH. WILL CONITNUE TO MONITOR.
[2017-09-30] MEDS ORDERED: KEFLEX500 MG PO (12:42)
[2017-09-30] MEDS ORDERED: FLORASTOR250 M1 PO (12:42)
--- NOTE | 2017-09-30 13:30 | NUR ---
DR STOLL IN WITH PT, NEW ORDERS RECEIVED.
--- NOTE | 2017-09-30 15:15 | NUR ---
IV site discontinued, cath intact. No edema , no redness, voices no discomfort.
--- NOTE | 2017-09-30 15:30 | NUR ---
Discharge instructions given. Patient verbalizes understanding of same. Discharged in stable condition via Wheelchair to Home with spouse. All belongings sent with pt.
== END 2017-09-30 15:32 | disposition home health service (06) | DRG 814 ==
LOC: ED 11:35 → ED-I 14:21 → ED 14:33 → MS2 14:34
PROVIDERS: Family Medicine; Nurse Practitioner Family; ADMIT Internal Medicine; ATTEND Internal Medicine
DX: D72.829 Elevated white blood cell count, unspecified (principal); G93.41 Metabolic encephalopathy; F03.90 Unspecified dementia, unspecified severity, without behavioral disturbance, psychotic disturbance, mood disturbance, and anxiety; R50.9 Fever, unspecified; E78.5 Hyperlipidemia, unspecified; J45.909 Unspecified asthma, uncomplicated; I10 Essential (primary) hypertension; M54.5 Low back pain; G89.29 Other chronic pain; M25.552 Pain in left hip; M25.512 Pain in left shoulder; W18.30XA Fall on same level, unspecified, initial encounter; Y93.F9 Activity, other caregiving; Y92.002 Bathroom of unspecified non-institutional (private) residence as the place of occurrence of the external cause; Z91.81 History of falling
CPT/HCPCS: G0378; J2060